=== PATIENT | female | born 1945 | race Caucasian/White ===

== ENCOUNTER → 2018-01-21 | Outpatient (CLI) | payer MEDICARE | END | disposition home or self-care (01) | LOC: CARD 14:08 | PROVIDERS: ATTEND Family Medicine | DX: R06.02 Shortness of breath (principal) | CPT/HCPCS: 94010; 94726; 94729 ==

== ENCOUNTER 2018-09-16 19:36 | Observation (INO) | payer MEDICARE ==
[~2018-09-16] VITALS: Ht 170.2 cm; Wt 90.2 kg
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
[2018-09-16] MEDS ORDERED: BLOOD PRESSURE (20:03)
[2018-09-16] MEDS ORDERED: DIPH,PERTUSS(ACELL),TET VAC/PF 0.5 ML IM-VACC ONE ×3 (20:15→21:00)
--- NOTE | 2018-09-16 20:26 | NUR ---
PT MEDICATED PER MAR. RESTING CALMLY ON GURNEY, DENIES NEEDS, FAMILY AT BEDSIDE, CALL LIGHT WITHIN REACH.
[2018-09-16] MEDS ORDERED: DIPHTHERIA-TETANUS ADULT 0.5ML IM-VACC ONE (20:30)
[2018-09-16 20:35] LABS: ALANINE AMINOTRANSFERASE 15 U/L (12-78); ALBUMIN 3.3 g/dL (3.4-5.0); ANION GAP 5 mmol/L (5-15); CALCIUM 9.5 mg/dL (8.5-10.1); CHLORIDE 103 mmol/L (98-107); CREATININE 1.13 mg/dL (0.55-1.02)
[2018-09-16 20:37] LABS: ALKALINE PHOSPHATASE 138 U/L (45-117); BILIRUBIN,TOTAL 0.3 mg/dL (0.2-1.0); TOTAL PROTEIN 7.5 g/dL (6.4-8.2)
[2018-09-16 20:42] LABS: BASOPHILS # (AUTO) 0.05 x10^3/uL (0-0.1); BASOPHILS % (AUTO) 1 % (0-1); EOSINOPHILS # (AUTO) 0.27 x10^3/uL (0-0.4); EOSINOPHILS % (AUTO) 3 % (1-7); LYMPHOCYTES # (AUTO) 1.08 x10^3/uL (1-3.4); LYMPHOCYTES % (AUTO) 12 % (22-44); MD NO; MEAN CORPUSCULAR HEMOGLOBIN 27.1 pg (27.0-34.8); MEAN CORPUSCULAR HGB CONC 32.8 g/dL (32.4-35.8); MEAN CORPUSCULAR VOLUME 82.4 fL (80-100); MEAN PLATELET VOLUME 9.2 fL (7.4-10.4); MONOCYTES # (AUTO) 0.72 x10^3/uL (0.2-0.8); MONOCYTES % (AUTO) 8 % (2-9); NEUTROPHILS # (AUTO) 7.09 x10^3/uL (1.8-6.8); NEUTROPHILS % (AUTO) 77 % (42-75); PLATELET COUNT 274 x10^3/uL (130-400); RED CELL DISTRIBUTION WIDTH 14.4 % (9.6-15.2)
--- NOTE | 2018-09-16 20:45 | NUR ---
pt to ct
[2018-09-16] MEDS ORDERED: OMNIPAQUE 350 MG/ML, 75ML BOTTLE ONE (21:05)
--- NOTE | 2018-09-16 21:13 | NUR ---
PT RESTING ON GURNEY, MONITORS ON, CALL LIGHT WITHIN REACH, PT C/O RIGHT CLAVICAL PAIN, WILL UPDATE ERP, AWAITING CT RESULTS AT THIS TIME
[2018-09-16] MEDS ORDERED: ONDANSETRON 2MG/ML, 2ML ONE (21:49)
[2018-09-16] MEDS ORDERED: MORPHINE SULFATE 4 MG/ML, 1ML ONE (21:49)
[2018-09-16] MEDS ORDERED: LIDOCAINE 2%-EPI 1:100K, 30ML INFIL ONE (22:00)
[2018-09-16] MEDS ORDERED: LIDOCAINE 1%-EPI 1:100K, 20ML ONE (22:05)
[2018-09-16] MEDS ORDERED: ONDANSETRON ODT 4 MG PO PRN ×2 (22:30→23:30)
[2018-09-16] MEDS ORDERED: morphine SULFATE 10 MG/ML, 1ML IVPush ONE (22:30)
[2018-09-16] MEDS: SODIUM CHLORIDE FLUSH 10ML SYR IVF SCH (23:24)
[2018-09-16] MEDS ORDERED: POLYETHYLENE GLYCOL 17 GM PACKET PO PRN (23:30)
[2018-09-16] MEDS ORDERED: ENALAPRILAT 1.25 MG/ML, 2ML IV PRN (23:30)
[2018-09-16] MEDS ORDERED: BISACODYL 10 MG SUPP PR PRN (23:30)
[2018-09-16] MEDS ORDERED: OXYcodone IR 5MG TABLET PO PRN (23:30)
[2018-09-17 00:05] VITALS: BP 117/73
[2018-09-17 00:52] VITALS: BP 144/68
[2018-09-17] MEDS ORDERED: SIMV10TA3 PO (01:44)
[2018-09-17] MEDS ORDERED: DULO60CA55 PO (01:44)
[2018-09-17 06:15] LABS: BASOPHILS # (AUTO) 0.04 x10^3/uL (0-0.1); BASOPHILS % (AUTO) 1 % (0-1); EOSINOPHILS # (AUTO) 0.19 x10^3/uL (0-0.4); EOSINOPHILS % (AUTO) 2 % (1-7); LYMPHOCYTES # (AUTO) 1.66 x10^3/uL (1-3.4); LYMPHOCYTES % (AUTO) 20 % (22-44); MD NO; MEAN CORPUSCULAR HGB CONC 32.3 g/dL (32.4-35.8); MEAN CORPUSCULAR VOLUME 83.5 fL (80-100); MEAN PLATELET VOLUME 9.5 fL (7.4-10.4); MONOCYTES % (AUTO) 10 % (2-9); NEUTROPHILS # (AUTO) 5.53 x10^3/uL (1.8-6.8); NEUTROPHILS % (AUTO) 67 % (42-75); PLATELET COUNT 281 x10^3/uL (130-400); RED BLOOD COUNT 4.52 x10^6/uL (3.82-5.3); RED CELL DISTRIBUTION WIDTH 14.1 % (9.6-15.2)
[2018-09-17 06:20] LABS: ANION GAP 8 mmol/L (5-15); CALCIUM 8.8 mg/dL (8.5-10.1); CHLORIDE 103 mmol/L (98-107); CREATININE 0.77 mg/dL (0.55-1.02)
[2018-09-17] MEDS: ACETAMINOPHEN 325 MG TABLET PO PRN ×2 (06:39→15:41)
[2018-09-17 07:58] VITALS: BP 120/76
[2018-09-17] MEDS: SODIUM CHLORIDE FLUSH 10ML SYR IVF SCH ×2 (09:36→20:49)
[2018-09-17] MEDS: SENNA/DOCUSATE TABLET PO SCH (09:36)
[2018-09-17 14:36] VITALS: BP 110/70
[2018-09-17] MEDS ORDERED: ACETAMINOPHEN 500 MG TABLET ONE (15:40)
[2018-09-17 19:48] VITALS: BP 117/70
[2018-09-18] MEDS: ACETAMINOPHEN 500 MG TABLET PO PRN ×2 (00:51→09:55)
[2018-09-18 00:58] VITALS: BP 128/75
[2018-09-18 05:41] LABS: ALBUMIN 2.8 g/dL (3.4-5.0); ANION GAP 6 mmol/L (5-15); BASOPHILS # (AUTO) 0.02 x10^3/uL (0-0.1); BASOPHILS % (AUTO) 0 % (0-1); CALCIUM 8.7 mg/dL (8.5-10.1); CHLORIDE 104 mmol/L (98-107); EOSINOPHILS % (AUTO) 8 % (1-7); LYMPHOCYTES # (AUTO) 1.07 x10^3/uL (1-3.4); LYMPHOCYTES % (AUTO) 17 % (22-44); MD NO; MEAN CORPUSCULAR HGB CONC 32.4 g/dL (32.4-35.8); MEAN CORPUSCULAR VOLUME 83.6 fL (80-100); MONOCYTES # (AUTO) 0.68 x10^3/uL (0.2-0.8); MONOCYTES % (AUTO) 11 % (2-9); NEUTROPHILS # (AUTO) 4.04 x10^3/uL (1.8-6.8); NEUTROPHILS % (AUTO) 64 % (42-75); PLATELET COUNT 244 x10^3/uL (130-400); RED BLOOD COUNT 4.33 x10^6/uL (3.82-5.3); RED CELL DISTRIBUTION WIDTH 14.4 % (9.6-15.2)
[2018-09-18 05:42] LABS: CREATININE 0.62 mg/dL (0.55-1.02)
[2018-09-18 08:18] VITALS: BP 132/82
[2018-09-18] MEDS: SENNA/DOCUSATE TABLET PO SCH (09:55)
[2018-09-18] MEDS: SODIUM CHLORIDE FLUSH 10ML SYR IVF SCH ×2 (09:59→19:52)
[2018-09-18] MEDS ORDERED: ACET500T71 PO (11:11)
[2018-09-18 12:12] VITALS: BP 107/69
[2018-09-18] MEDS ORDERED: FUROSEMIDE 20 MG/2 ML IV ONE (13:30)
[2018-09-18] MEDS ORDERED: methylPREDNISolone SOD SUCC 125 MG/2 ML IVPush ONE (13:30)
[2018-09-18] MEDS ORDERED: ALBUTEROL SULFATE 2.5 MG/3 ML NPPB ONE (15:00)
[2018-09-18] MEDS ORDERED: LIDODERM 5% PATCH TD SCH (15:30)
[2018-09-18] MEDS ORDERED: OMNIPAQUE 350 MG/ML, 100ML BOTTLE ONE (18:35)
[2018-09-18] MEDS ORDERED: OXYcodone IR 5MG TABLET PO PRN (19:30)
[2018-09-18 19:44] VITALS: BP 120/50
[2018-09-19 00:49] VITALS: BP 132/72
[2018-09-19 05:40] LABS: BASOPHILS # (AUTO) 0.02 x10^3/uL (0-0.1); BASOPHILS % (AUTO) 0 % (0-1); EOSINOPHILS # (AUTO) 0.31 x10^3/uL (0-0.4); EOSINOPHILS % (AUTO) 5 % (1-7); LYMPHOCYTES % (AUTO) 20 % (22-44); MD NO; MEAN CORPUSCULAR HEMOGLOBIN 27.5 pg (27.0-34.8); MEAN CORPUSCULAR HGB CONC 33.3 g/dL (32.4-35.8); MEAN CORPUSCULAR VOLUME 82.7 fL (80-100); MEAN PLATELET VOLUME 9.2 fL (7.4-10.4); MONOCYTES # (AUTO) 0.63 x10^3/uL (0.2-0.8); MONOCYTES % (AUTO) 11 % (2-9); NEUTROPHILS # (AUTO) 3.79 x10^3/uL (1.8-6.8); NEUTROPHILS % (AUTO) 64 % (42-75); PLATELET COUNT 246 x10^3/uL (130-400); RED BLOOD COUNT 4.16 x10^6/uL (3.82-5.3); RED CELL DISTRIBUTION WIDTH 14.5 % (9.6-15.2)
[2018-09-19 05:55] LABS: ALBUMIN 2.6 g/dL (3.4-5.0); ANION GAP 6 mmol/L (5-15); CALCIUM 8.6 mg/dL (8.5-10.1); CHLORIDE 105 mmol/L (98-107); CREATININE 0.57 mg/dL (0.55-1.02)
[2018-09-19 07:44] VITALS: BP 144/77
[2018-09-19] MEDS: SENNA/DOCUSATE TABLET PO SCH (09:45)
[2018-09-19] MEDS: ACETAMINOPHEN 500 MG TABLET PO PRN (09:48)
[2018-09-19] MEDS: SODIUM CHLORIDE FLUSH 10ML SYR IVF SCH (09:49)
[2018-09-19 12:47] VITALS: BP 138/73
[2018-09-19] MEDS ORDERED: TRAM50TA2 PO (14:54)
== END 2018-09-19 15:00 | disposition home or self-care (01) ==
LOC: ED 19:49 → EDIP 23:28 → INTOOBSV 23:28 → 4NOR 23:55
PROVIDERS: ADMIT Internal Medicine; ATTEND Internal Medicine
DX: S42.001A Fracture of unspecified part of right clavicle, initial encounter for closed fracture (principal); S01.91XA Laceration without foreign body of unspecified part of head, initial encounter; I10 Essential (primary) hypertension; E44.0 Moderate protein-calorie malnutrition; J96.01 Acute respiratory failure with hypoxia; W01.0XXA Fall on same level from slipping, tripping and stumbling without subsequent striking against object, initial encounter; Y93.89 Activity, other specified; Y92.89 Other specified places as the place of occurrence of the external cause; Y99.8 Other external cause status; Z23 Encounter for immunization
CPT/HCPCS: 36415; 70450; 71045; 71260; 71275; 72125; 80048; 80053; 82040; 85014; 85018; 85025; 85379; 90471; 90472; 90714; 90715; 93005; 94640; 96374; 97162; 97530; 99284; G0378; G8978; G8979; G8980; J2270; J7613; Q0162; Q9967